=== PATIENT | female | born 1940 | race Caucasian/White ===

== ENCOUNTER → 2017-09-30 12:22 | Outpatient (CLI) | payer MEDICARE ==
[2016-09-30 10:26] VITALS: BMI 20.2
[~2017-09-30 12:22] MED LIST: CALCIUM 500 + D1 TAB PO; RYTHMOL150 MG PO
== END | disposition home or self-care (01) ==
LOC: D.US 12:22
DX: R09.89 Other specified symptoms and signs involving the circulatory and respiratory systems (principal)

== ENCOUNTER → 2018-04-26 10:31 | Outpatient (CLI) | payer MEDICARE ==
[2016-09-30 10:26] VITALS: BMI 20.2
== END | disposition home or self-care (01) ==
LOC: D.MRI 10:31
DX: R51 Headache (principal)